=== PATIENT | male | born 1960 | race Caucasian/White ===

== ENCOUNTER 2017-04-18 08:45 | Outpatient (CLI) | payer OTHER ==
--- NOTE | 2017-04-18 11:18 | XRay Report ---
Bilateral orbits, 2 views. History: Previous orbital injury, evaluate for metallic fragments. Findings: There is no evidence of metallic foreign body within the orbits.
--- NOTE | 2017-04-20 14:04 | Magnetic Resonance Report ---
MRI UPPER EXTREMITY JOINT LEFT WITHOUT CONTRAST HISTORY: Left elbow pain, evaluate for tendon injury. TECHNIQUE: Multisequence, multiplanar MRI without IV contrast was performed to the left elbow region. COMPARISON: None. FINDINGS: There is thickening and increased intrinsic signal within the common extensor tendon origin at the lateral epicondyle of the distal humerus. These findings suggest lateral epicondylitis. Some of the sequences suggests there may be a partial tear of the deep fibers of the common extensor tendon. This is best demonstrated on coronal proton density fat sat image 13. No complete detachment. The common flexor tendon and its attachment site on the medial epicondyle is unremarkable. The visualized courses of the brachialis tendon, biceps brachii tendon and triceps tendon are unremarkable. There is normal bone marrow signal in the distal humerus and proximal ulna/radius. No evidence for fracture, bone lesion or large osteochondral defect. No significant degenerative changes. No joint effusion. The periarticular musculature is within normal limits. IMPRESSION: Findings consistent with lateral epicondylitis (tennis elbow). See above. Please correlate with the patient's clinical presentation.
== END 2017-04-18 08:46 | disposition home or self-care (01) ==
LOC: MRI 08:45
PROVIDERS: ATTEND Internal Medicine
DX: T15.92XA Foreign body on external eye, part unspecified, left eye, initial encounter (principal); T15.91XA Foreign body on external eye, part unspecified, right eye, initial encounter; S59.902A Unspecified injury of left elbow, initial encounter